=== PATIENT | female | born 1970 | race Two or more races ===

== ENCOUNTER 2022-05-30 13:19 | Emergency (ER) | payer MEDICAID ==
[~2022-05-30] VITALS: Ht 165.1 cm; Wt 113.4 kg
[2022-05-30 13:30] VITALS: BP 149/100
--- NOTE | 2022-05-30 13:30 | NUR ---
BIBS C/O BACK PAIN, DIAGNOSED WITH SCIATICA A MONTH AGO, PAIN IS WORSE NOW.
--- NOTE | 2022-05-30 14:15 | NUR ---
SEEN AND EXAMINED BY DR STRICKLAND
[2022-05-30] MEDS ORDERED: NAPR-1192 PO (14:22)
[2022-05-30] MEDS ORDERED: CYCL5TAB PO (14:22)
[2022-05-30] MEDS ORDERED: KETOROLAC TROMETHAMINE 15 MG/ML VIAL ONE (14:27)
[2022-05-30] MEDS ORDERED: CYCLOBENZAPRINE 10 MG TABLET ONE (14:27)
[2022-05-30] MEDS ORDERED: CYCLOBENZAPRINE 10 MG TABLET PO ONE (14:30)
[2022-05-30] MEDS ORDERED: KETOROLAC TROMETHAMINE INJ 60 MG/2 ML VIAL IM ONE (14:30)
--- NOTE | 2022-05-30 14:39 | NUR ---
Patient discharged to home in stable condition. Written and verbal after care instructions given. Patient verbalizes understanding of instruction.
== END 2022-05-30 14:39 | disposition home or self-care (01) ==
LOC: ER 13:26
DX: S39.012A Strain of muscle, fascia and tendon of lower back, initial encounter (principal); M54.16 Radiculopathy, lumbar region; M54.42 Lumbago with sciatica, left side; I10 Essential (primary) hypertension; Z79.899 Other long term (current) drug therapy; X58.XXXA Exposure to other specified factors, initial encounter; Y93.89 Activity, other specified; Y92.89 Other specified places as the place of occurrence of the external cause; Y99.8 Other external cause status
CPT/HCPCS: 99283; 96372; J1885